=== PATIENT | female | born 1985 | race Caucasian/White ===

== ENCOUNTER 2019-02-08 15:12 | Inpatient (IN) ==
[2019-02-08] MEDS ORDERED: IOPAMIDOL 100 ML BOTTLE IV ONE (15:13)
--- NOTE | 2019-02-08 15:50 | Emergency Department Note ---
Abdominal Pain HPI - General Chief Complaint: Abdominal Pain Stated Complaint: Elevated liver enzymes Time Seen by Provider: 02/08/19 15:16 Source: patient, family Mode of arrival: ambulatory Limitations: no limitations - History of Present Illness HPI Narrative: 33-year-old female in ED referred from Dr. Porras office after lab results returned as patient's liver enzymes and bilirubin were elevated. Patient is 10 weeks' . She has been having night sweats and general fatigue. She was treated for urinary tract infection with Macrobid which is now cleared. Patient has no abdominal pain. She does have low back pain. Patient does not drink alcohol, does not smoke cigarettes, does not use marijuana. She does drink a lot of water and has not had a fever. Patient describes her low back pain is 2-3/10 fairly constant. She did have about a nausea that was prior to starting antibiotic treatment. Patient advises she does not take any [id number] herbal supplements. 4 days ago she did start taking 600 mg ibuprofen daily (last intake 1900) and 2000 mg Tylenol daily (last intake 0700). She also took Macrobid 5 days ago for a total of 4 days no antibiotic intake today. Patient has had no fevers no changes in bowel pattern. Associated symptoms: Reports: other (night sweats) - Related Data Home Medications Medication Instructions Recorded Confirmed #[id number] 1 tablet PO DAILY 04/23/15 02/08/19 Acetaminophen [Tylenol] 2 tab PO BID PRN 02/08/19 02/08/19 Ibuprofen [Ibu] 1 tab PO DAILY PRN 02/08/19 02/08/19 Allergies Allergy/AdvReac Type Severity Reaction Status Date / Time No Known Drug Allergies Allergy Verified 02/08/19 15:12 Review of Systems All systems ED: reviewed and negative except as stated. Abdominal Pain PMH - Past Medical History LMP comments: other (Has Nexplanon recently placed.) [facility] Narrative: All Active Problems (Last Reviewed 02/08/19 @ 09:13 by Jean-Pierre Porras DO) Annual visit for general adult medical examination without abnormal findings (Chronic) Pigmented skin lesion of uncertain nature (Chronic) Family history of breast cancer (Chronic) Seasonal allergies (Acute) Bronchitis (Acute) [place] teeth removed (Chronic) Family History (Last Reviewed 02/08/19 @ 09:13 by Jean-Pierre Porras DO) Father Malignant Neoplasm of Skin Diabetes mellitus Mother Malignant neoplasm of breast Grandmother-maternal Malignant neoplasm of breast Grandmother-paternal Malignant neoplasm of breast - Social History Smoking status: Never smoker Alcohol use: Reports: None Drug use: Reports: none Physical Exam Limitations: no limitations General appearance: alert, in no apparent distress Head: atraumatic, normocephalic, normal inspection Eye: Present: normal appearance, PERRL, EOMI. Absent: conjunctival injection ENT: normal oropharynx, mucous membranes moist, TM's normal bilaterally, normal external ear exam Neck: Present: normal inspection, full ROM, trachea midline. Absent: tenderness, lymphadenopathy Chest: Present: normal inspection, symmetric chest wall rise. Absent: tenderness Respiratory: Present: normal lung sounds bilaterally. Absent: respiratory distress, rales/crackles, wheezes Cardiovascular: Present: regular rate, normal rhythm. Absent: systolic murmur, diastolic murmur Abdominal: Present: soft, normal bowel sounds. Absent: distention, tenderness, guarding, rebound, rigidity Extremities: Present: normal inspection. Absent: tenderness, pedal edema Back: Present: normal inspection, full ROM, tenderness (L5-S1 area and across to hips), CVA tenderness (R). Absent: CVA tenderness (L) Neurological: Present: alert, oriented X3, normal gait Psychiatric: Present: normal affect, normal mood. Absent: depressed, agitated, anxious, flat affect Skin: Present: warm, dry, intact, normal color, other (pt does have what appears to be hot flashes from time to time.). Absent: cool, diaphoretic Course Vital Signs Temperature 98.0 F 02/08/19 15:13 Pulse Rate 89 02/08/19 15:13 Respiratory Rate 16 02/08/19 15:13 Blood Pressure 117/82 02/08/19 15:13 Pulse Oximetry (%) 98 02/08/19 15:13 Temperature 98.0 F 02/08/19 15:13 Pulse Rate 89 02/08/19 15:13 Respiratory Rate 16 02/08/19 15:13 Blood Pressure 117/82 02/08/19 15:13 Pulse Oximetry (%) 98 02/08/19 15:13 Abdominal Pain - MDM Narrative Medical decision making narrative: Lab work done earlier in the day with WBC 6.7 RBC 5.03, Hgb 11.9, HCT 35.8, platelet count 135, no shift to the left, ESR 40, lactic acid 1.2, sodium, potassium, BUN and creatinine all within normal limits, bilirubin 1.3 which is elevated from September when it was 1.1, AST 442 which is increased from 29, ALT 644 which is increased from 25, alkaline phosphatase 409 which is increased from 56 prolactin 52.4 urinary tract infection has cleared. Patient was negative for flu swab. Consulted with Dr. Awan who advised to get follow-up lab work and need for overnight observations to have reevaluation of liver enzymes. Also advised no additional Tylenol and to have rn documentation specialist GI phoned tomorrow with results and inquire on any additional ideas. Consulted with who advised this is highly unlikely related to as she is out of the window of any preeclampsia, and she would be having multiple other concerns, such as MODS. Also advised Prolactin in a breast feeding woman will be high. Therefore, it is okay for her to stay here verse a hospital with [facility] facilities. Dr. Olivera consulted on overnight observation and accepted patient. - Lab Data Lab Results 02/08/19 02/08/19 02/08/19 Range/Units 15:50 15:50 15:53 Urine Color Alana Urine Appearance Hazy Urine pH 6.0 (5.0-9.0) Ur Specific [place] 1.031 (1.000-1.035) Urine Protein 100 A (NEG) mg/dL Urine Glucose (UA) Negative (NEG) mg/dL Urine Ketones Neg (NEG) mg/dL Urine Occult Blood Neg (<0.03) mg/dL Urine Nitrate Neg (NEG) Urine Bilirubin Neg (NEG) mg/dL Urine Urobilinogen 4.0 A (NEG) mg/dL Ur Leukocyte Esterase 25 A (NEG) /uL Urine RBC 3 H (0-1) /hpf Urine WBC 4 (0-4) /hpf Ur Squamous Epith Cells 4 (0-4) /hpf Calcium Oxalate Crystal Many A (0) /hpf Urine Bacteria 0 (0) /hpf Urine Mucus Few (0) /hpf Ur Culture Indicated? No Acetaminophen 13.6 ug/mL Hepatitis A IgM Ab Non reactive (NEGATIVE) Hep Bs Antigen Negative (NEGATIVE) Hep B Core IgM Ab Non reactive (NEGATIVE) Hepatitis C Antibody Non reactive (NEGATIVE) Miscellaneous Test 02/08/19 02/08/19 Range/Units 21:13 21:14 Urine Color Urine Appearance Urine pH (5.0-9.0) Ur Specific [place] (1.000-1.035) Urine Protein (NEG) mg/dL Urine Glucose (UA) (NEG) mg/dL Urine Ketones (NEG) mg/dL Urine Occult Blood (<0.03) mg/dL Urine Nitrate (NEG) Urine Bilirubin (NEG) mg/dL Urine Urobilinogen (NEG) mg/dL Ur Leukocyte Esterase (NEG) /uL Urine RBC (0-1) /hpf Urine WBC (0-4) /hpf Ur Squamous Epith Cells (0-4) /hpf Calcium Oxalate Crystal (0) /hpf Urine Bacteria (0) /hpf Urine Mucus (0) /hpf Ur Culture Indicated? Acetaminophen ug/mL Hepatitis A IgM Ab (NEGATIVE) Hep Bs Antigen (NEGATIVE) Hep B Core IgM Ab (NEGATIVE) Hepatitis C Antibody (NEGATIVE) Miscellaneous Test - Radiology Data Radiology results reviewed: Yes I reviewed the patient's radiology results. Ultrasound gallbladder: CLINICAL INFORMATION: elavated enzymes and bilirubin COMPARISON: None. FINDINGS: The gallbladder is contracted but shows no evidence of wall thickening or focal tenderness. No stones. Common bile is normal at 4 mm. The pancreas and liver are normal in size configuration and echotexture without focal lesion. No free fluid IMPRESSION: Normal gallbladder, bile ducts, liver and pancreas CT abdominopelvic with contrast: FINDINGS: Lung bases show no abnormality - no effusion. The visualized heart is normal. Images of the abdomen show the liver is normal in size and figuration and demonstrates mild diffuse fatty change and periportal edema. Gallbladder is slightly contracted with minimal pericholecystic fluid. No stones. Intrahepatic and common bile ducts are normal caliber. The spleen is mildly enlarged spanning 15 x 4.4 x 13 cm. Both kidneys, adrenal glands, pancreas and aorta, including aortic branches, are normal in size, configuration and attenuation without focal lesion.No free air, free fluid or adenopathy. Images through the pelvis. Urinary bladder is unremarkable. Retroflexed uterus is normal in size - 8 x 4 cm. The region of the ovaries is normal. The stomach, small bowel, appendix and large bowel are normal. Bone window are significant for chronic bilateral L5-S1 spondylolisthesis with grade 1 spondylolisthesis resulting in severe left and moderate right IV foraminal narrowing impinging the exiting L5 nerve roots. IMPRESSION: 1. Mild periportal edema and diffuse fatty change in the liver. This CT finding, in conjunction with elevated LFTs, is suggestive of diffuse hepatic inflammation. Please correlate with any clinical history of exposure to hepatotoxins (alcohol, no poisons, medications, viruses etc.) 2. Mild splenomegaly. This may indicate multiple hematologic processes, infection or a collagen vascular disease. Correlation with inflammatory markers, CBC and reticulocyte count suggested 3. Chronic bilateral L5-S1 spondylolysis with grade 1 spondylolisthesis resulting in1 moderate right and severe left IV foraminal narrowing impinging the exiting L5 nerve roots Disposition Pt seen by PRIMARY OPERATOR/PA only: No (Chin) Clinical Impression: Abnormal liver function tests Disposition: Xfer As Outpt/Obs ([facility]) Condition: Good Referrals: Jean-Pierre Porras DO [Primary Care Provider] - Time of Disposition: 21:56
[2019-02-08] MEDS ORDERED: 0.9 % SODIUM CHLORIDE 1,000 ML IV ONE (16:18)
[2019-02-08 16:32] LABS: Appearance,Urine HAZY; Bacteria,Urine 0 /hpf (0); Bilirubin,Urine NEG (NEG); Calcium Oxalate Crystals,Urine MANY /hpf (0); Color,Urine AMBER; Glucose,Urine (UA) NEGATIVE (NEG); Leukocyte Esterase,Urine 25 /uL (NEG); Mucus,Urine FEW /hpf (0); Protein,Urine 100 mg/dL (NEG); Specific Gravity,Urine 1.031 (1.000-1.035); Urine Blood NEG mg/dL (<0.03); Urine RBC 3 /hpf (0-1); Urine Squamous Epithelial Cell 4 /hpf (0-4); Urine WBC 4 /hpf (0-4)
--- NOTE | 2019-02-08 17:33 | Ultrasound Report ---
CLINICAL INFORMATION: elavated enzymes and bilirubin COMPARISON: None. FINDINGS: The gallbladder is contracted but shows no evidence of wall thickening or focal tenderness. No stones. Common bile is normal at 4 mm. The pancreas and liver are normal in size configuration and echotexture without focal lesion. No free fluid IMPRESSION: Normal gallbladder, bile ducts, liver and pancreas Interpreted and Authenticated by: Jean-Pierre Rendon 02/08/19
[2019-02-08 19:02] LABS: Hepatitis A Antibody IgM NON REACTIVE (NEGATIVE); Hepatitis B Core IgM NON REACTIVE (NEGATIVE); Hepatitis B Surface Antigen NEGATIVE (NEGATIVE); Hepatitis C Virus Antibody NON REACTIVE (NEGATIVE)
--- NOTE | 2019-02-08 19:12 | Cat Scan Report ---
CLINICAL INFORMATION: Abdominal pain and elevated LFTs COMPARISON: None. TECHNIQUE: Following enteric contrast, 80 cc of Isovue-300 were injected intravenously, and 60 seconds later, 0.625 mm helical slices were obtained from the mid heart through the subtrochanteric regions. Following reconstruction, 2.5 mm sagittal, coronal and axial reformatted images were processed and reviewed at bone, lung and soft tissue windows. Five minutes later, 0.625 mm helical slices were obtained from the mid heart through the kidneys and viewed at soft tissue windows.The exam was performed using radiation dose optimization techniques including, but not limited to, automated exposure control, adjustment of the mA and/or kV according to patient size and use of iterative reconstruction technique. FINDINGS: Lung bases show no abnormality - no effusion. The visualized heart is normal. Images of the abdomen show the liver is normal in size and figuration and demonstrates mild diffuse fatty change and periportal edema. Gallbladder is slightly contracted with minimal pericholecystic fluid. No stones. Intrahepatic and common bile ducts are normal caliber. The spleen is mildly enlarged spanning 15 x 4.4 x 13 cm. Both kidneys, adrenal glands, pancreas and aorta, including aortic branches, are normal in size, configuration and attenuation without focal lesion.No free air, free fluid or adenopathy. Images through the pelvis. Urinary bladder is unremarkable. Retroflexed uterus is normal in size - 8 x 4 cm. The region of the ovaries is normal. The stomach, small bowel, appendix and large bowel are normal. Bone window are significant for chronic bilateral L5-S1 spondylolisthesis with grade 1 spondylolisthesis resulting in severe left and moderate right IV foraminal narrowing impinging the exiting L5 nerve roots. IMPRESSION: 1. Mild periportal edema and diffuse fatty change in the liver. This CT finding, in conjunction with elevated LFTs, is suggestive of diffuse hepatic inflammation. Please correlate with any clinical history of exposure to hepatotoxins (alcohol, no poisons, medications, viruses etc.) 2. Mild splenomegaly. This may indicate multiple hematologic processes, infection or a collagen vascular disease. Correlation with inflammatory markers, CBC and reticulocyte count suggested 3. Chronic bilateral L5-S1 spondylolysis with grade 1 spondylolisthesis resulting in1 moderate right and severe left IV foraminal narrowing impinging the exiting L5 nerve roots Interpreted and Authenticated by: Jean-Pierre Rendon 02/08/19
[2019-02-08 22:21] LABS: Amphetamine Screen,Urine NONE DETECTED (NONDETECTED); Benzodiazepines Screen,Urine NONE DETECTED (NONDETECTED); Cocaine Screen,Urine NONE DETECTED (NONDETECTED); Opiate Screen,Urine NONE DETECTED (NONDETECTED); Oxycodone, Urine Screen NONE DETECTED (NONDETECTED)
--- NOTE | 2019-02-08 22:42 | Internal Med History&Physical ---
Medical - H&P: [facility] Patient information: Note initiated : 02/08/19 at 10:32 pm Service Date, if different from initiated Date: [] Patient: Lesly Tionco a 33 y/o F admitted on for Elevated liver enzymes. Chief Complaint: [] History of present illness: Ms. Tinoco is a 33 year old F Presents to the ED from her primary care provider's office for elevated liver enzymes as well as B-like symptoms. Patient is 10 weeks for vaginal delivery. Postoperative she had some back pain which she believes from the epidural. She was on hydrocodone and Tylenol for a while. Pain eventually over 3 weeks. She is doing well until about 10 days ago when she started developing headaches arthralgias body aches chills night sweats fatigue. She is also developed bilateral lower back pain near the sides over the musculature. Prior to this the only medication she was on was occasional Tylenol maybe once a week and occasional ibuprofen even less frequent. She did have Etonogestrel implant for contraceptive use placed January 09, she has used this before. She denies any herbal medications. She does not drink alcohol or smoke. About 4 days ago she was treated for urinary tract infection with Macrobid, but again the symptoms started prior to this. She first saw her primary care provider who initiated work-up outpatient and found to have elevated liver enzymes and thus was sent in to the ED. AST was over 400 and ALT was over 600 with an elevated alk phos over 400. He did have a hepatitis panel and flu screen which were both negative. Gallbladder ultrasound was unremarkable. CT abdomen pelvis reported as diffuse fatty change in liver and mild periportal edema mild splenomegaly. Case was discussed with on-call WHITE MIXING OPERATOR who had no concerns from that perspective. Case was discussed with Dr. Decker recommended admission for follow-up labs in the morning and broad work-up including autoimmune and viral labs. Will check INR. Tylenol level was unremarkable. After discussion with gastroenterology there was consideration for starting empiric prednisone until some of the autoimmune labs returned such as HANSA. Review of Systems: Pertinent positives as above. Denies fever/nausea/vomiting/chest or abdominal pain/cough/dyspnea/diarrhea. Remaining 10 point review of system reviewed negat arie Medical - H&P: PM Medical history: Medical History (Last Reviewed 02/08/19 @ 09:13 by Jean-Pierre Porras DO) Seasonal allergies (Acute) Bronchitis (Acute) [place] teeth removed (Chronic) Heartburn (Resolved) Surgical history: Denies any Family History (Last Reviewed 02/08/19 @ 09:13 by Jean-Pierre Porras DO) Father Malignant Neoplasm of Skin Diabetes mellitus Mother Malignant neoplasm of breast Grandmother-maternal Malignant neoplasm of breast Grandmother-paternal Malignant neoplasm of breast Social History (Last Reviewed 02/08/19 @ 09:13 by Jean-Pierre Porras DO) Denies alcohol or smoking lives at home with Medical - H&P: Meds Home Medications Medication Instructions Recorded Confirmed Type #[id number] 1 tablet PO DAILY 04/23/15 02/08/19 History Acetaminophen [Tylenol] 2 tab PO BID PRN 02/08/19 02/08/19 History Ibuprofen [Ibu] 1 tab PO DAILY PRN 02/08/19 02/08/19 History Allergies Allergy/AdvReac Type Severity Reaction Status Date / Time No Known Drug Allergies Allergy Verified 02/08/19 15:12 Medical - H&P: Exam - Constitutional Vitals: Temp Pulse Resp BP Pulse Ox 98.0 F 89 16 117/82 98 02/08/19 15:13 02/08/19 15:13 02/08/19 15:13 02/08/19 15:13 02/08/19 15:13 Exam: General: Alert, Awake, No acute Distress Eyes/N/T: EOMI, PEERL, DMM Head/Neck: neck supple, normocephalic atraumatic CV: RRR, No murmurs, normal s1/s2 Pulm: Clear b/l, no wheezing/rhonchi/rales Abd: soft, nontender, +BS x4, minimal tenderness to palpation over bilateral paralumbar musculature Ext: no clubbing/cyanosis/edema Neuro: Alert, no focal deficits, moves all extremities, CN 2-12 grossly intact, symmetrical strength b/l upper/lower, sensations intact b/l upper/lower Skin: warm/dry Medical - H&P: Reslt - Labs Labs: Urine 02/08/19 Range/Units 15:53 Urine Color Alana Urine Appearance Hazy Urine pH 6.0 (5.0-9.0) Ur Specific [place] 1.031 (1.000-1.035) Urine Protein 100 A (NEG) mg/dL Urine Glucose (UA) Negative (NEG) mg/dL - Impressions CT abdomen pelvis with fatty changes in the liver, mild splenomegaly no other acute findings Medical - H&P: A/P - Narrative A/P Narrative: A: *Acute hepatitis: ?Etiology - medications vs viral vs autoimmune -hepatitis panel and APAP unremarkable. *B-like symptoms of myalgias/arthralgias/night sweats/fatigue: * 10 weeks: Vaginal delivery. Follows with Dr. Bui *Contraceptive use: Etonogestrel implant placed january 09, has been on this in past * P: -pending autoimmune/viral labs -check INR/Ammonia -GI consult -f/u LFT's in AM - -ppx: SCD/Ambulation
[2019-02-08 22:50] LABS: Immunoglobulin A 329.5 mg/dl (70.0-400.0)
[2019-02-08] MEDS ORDERED: PROMETHAZINE 25 MG TABLET PO PRN (23:04)
[2019-02-08] MEDS ORDERED: 0.9 % SODIUM CHLORIDE 1,000 ML IV SCH (23:04)
[2019-02-08] MEDS ORDERED: POLYETHYLENE GLYCOL 3350 17 GM PACKET PO PRN (23:04)
[2019-02-08] MEDS ORDERED: predniSONE 20 MG TABLET PO ONE (23:04)
[2019-02-08] MEDS ORDERED: ONDANSETRON 4 MG/2 ML VIAL IV PRN (23:04)
[2019-02-08] MEDS ORDERED: traMADol 50 MG TABLET PO PRN (23:04)
[2019-02-08] MEDS ORDERED: predniSONE 20 MG TABLET ONE (23:42)
[2019-02-08] MEDS ORDERED: traMADol 50 MG TABLET PO ONE (23:43)
[2019-02-09] MEDS ORDERED: oxyCODONE HCL 5 MG TABLET PO ONE ×2 (01:27→01:34)
[2019-02-09] MEDS ORDERED: diphenhydrAMINE 25 MG CAPSULE PO ONE (01:28)
[2019-02-09] MEDS ORDERED: diphenhydrAMINE 25 MG CAPSULE ONE (01:33)
[2019-02-09] MEDS ORDERED: predniSONE 20 MG TABLET ONE (01:37)
[2019-02-09] MEDS ORDERED: ONDANSETRON 4 MG/2 ML VIAL ONE (01:43)
[2019-02-09] MEDS: 0.9 % SODIUM CHLORIDE 10 ML SYRINGE IV SCH ×2 (01:44→05:10)
[2019-02-09 06:40] LABS: Basophils # (Auto) 0 K/mcL (0.0-0.3); Basophils % (Auto) 0.6 % (0.0-2.0); Eosinophils # (Auto) 0.1 K/mcL (0.0-0.7); Eosinophils % (Auto) 0.9 % (0.0-7.0); Granulocytes % (Auto) 32.3 % (38.0-78.0); Lymphocytes % (Auto) 58.3 % (15.5-49.0); Mean Cell Volume 88.2 fL (80.0-100.0); Mean Corpuscular HGB Conc 34.2 g/dL (31.0-36.0); Monocytes # (Auto) 0.5 K/mcL (0.1-0.9); Monocytes % (Auto) 7.9 % (1.0-12.0); Platelet Count 158 K/mcL (140-440); RBC 3.63 M/mcL (4.00-5.20)
--- NOTE | 2019-02-09 07:07 | Internal Med Progress Note ---
Medical - PN: Subj Patient information: Note initiated : 02/09/19 at 7:04 am Service Date, if different from initiated Date: [] Patient: Lesly Tinoco a 33 y/o F admitted on 02/08/19 for Elevated liver enzymes. Chief Complaint: [] Interval history: Ms. Tinoco is a 33 year old F Presents to the ED from her primary care provider's office for elevated liver enzymes as well as B-like symptoms. Patient is 10 weeks for vaginal delivery. Postoperative she had some back pain which she believes from the epidural. She was on hydrocodone and Tylenol for a while. Pain eventually over 3 weeks. She is doing well until about 10 days ago when she started developing headaches arthralgias body aches chills night sweats fatigue. She is also developed bilateral lower back pain near the sides over the musculature. Prior to this the only medication she was on was occasional Tylenol maybe once a week and occasional ibuprofen even less frequent. She did have Etonogestrel implant for contraceptive use placed January 09, she has used this before. She denies any herbal medications. She does not drink alcohol or smoke. About 4 days ago she was treated for urinary tract infection with Macrobid, but again the symptoms started prior to this. She first saw her primary care provider who initiated work-up outpatient and found to have elevated liver enzymes and thus was sent in to the ED. AST was over 400 and ALT was over 600 with an elevated alk phos over 400. He did have a hepatitis panel and flu screen which were both negative. Gallbladder ultrasound was unremarkable. CT abdomen pelvis reported as diffuse fatty change in liver and mild periportal edema mild splenomegaly. Case was discussed with on-call CALENDER MACHINE OPERATOR who had no concerns from that perspective. Case was discussed with Dr. Decker recommended admission for follow-up labs in the morning and broad work-up including autoimmune and viral labs. Will check INR. Tylenol level was unremarkable. After discussion with gastroentero logy there was consideration for starting empiric prednisone until some of the autoimmune labs returned such as HANSA. 02/09 Patient had severe headaches last night. She has a history of headaches growing up. Did not have any headaches during and then started having headaches again afterwards. She has been she given 1 dose of oxycodone and Benadryl and prednisone which was previously ordered that she had initially refused. She was able to sleep and felt really good in the morning when she woke up and then started having some sweating again. Liver enzymes are improved today. - Constitutional Vitals: Vital Signs Temp Pulse Resp BP Pulse Ox 97.8 F 78 20 107/65 93 02/09/19 07:02 02/09/19 04:00 02/09/19 07:02 02/09/19 07:02 02/09/19 07:02 Period Temp Pulse Resp BP Sys/Torres Pulse Ox Last 24 Hr 97.8 F-99 F 78-89 10-20 107-117/63-82 93-98 Intake and Output 02/08/19 02/09/19 02/09/19 21:59 05:59 13:59 Intake Total 1000 600 Output Total 100 800 Balance 1000 500 -800 Weight 72.575 kg 74.843 kg Intake & Output: Intake & Output 02/08/19 02/09/19 02/09/19 21:59 05:59 13:59 Intake Total 1000 600 Output Total 100 800 Balance 1000 500 -800 Weight 72.575 kg 74.843 kg Intake: IV 1000 Sodium Chloride 0.9% 1,000 ml @ 1000 Wide Open IV BOLUS ONE Rx#: [id number] Oral 600 Output: Void Amount 100 800 Other: Urine Appearance Clear Urine Color Dark Yellow Dark Yellow Urine Odor Normal Normal # Voids 1 Exam: General: Alert, Awake, No acute Distress Eyes/N/T: EOMI, Head/Neck: neck supple, CV: RRR, No murmurs, Pulm: Clear b/l, no wheezing/rhonchi/rales Abd: soft, nontender, +BS x4, Ext: no clubbing/cyanosis/edema Neuro: Alert, no focal deficits, moves all extremities, Skin: warm/dry Medical - PN: Obj Da - Labs CBC & Chem 7: 02/09/19 04:35 02/09/19 04:35 Labs: Abnormal Lab Results 02/09/19 02/08/19 02/08/19 04:35 21:14 21:14 RBC 3.63 L Hgb 10.9 L Hct 32.0 L Gran % 32.3 L Lymph % (Auto) 58.3 H Total Creatine Kinase 344 H Urine Protein Urine Urobilinogen Ur Leukocyte Esterase Urine RBC Calcium Oxalate Crystal IgM 440.0 H 02/08/19 15:53 RBC Hgb Hct Gran % Lymph % (Auto) Total Creatine Kinase Urine Protein 100 A Urine Urobilinogen 4.0 A Ur Leukocyte Esterase 25 A Urine RBC 3 H Calcium Oxalate Crystal Many A IgM Meds: Medications Sodium Chloride (Sodium Chloride 0.9%) 1,000 mls @ 75 mls/hr IV .[id number] [facility] Stop: 02/09/19 12:23 Last Admin: 02/09/19 00:30 Dose: 75 mls/hr Documented by: Ondansetron HCl (Zofran) 4 mg IV Q6HP PRN PRN Reason: Nausea And Vomiting Last Admin: 02/09/19 01:41 Dose: 4 mg Documented by: Polyethylene Glycol (Miralax) 17 gm PO DAILYP PRN PRN Reason: Constipation Promethazine HCl (Phenergan) 12.5 mg PO Q6HP PRN PRN Reason: Nausea And Vomiting Sodium Chloride (Saline Flush) 10 ml IV Q8 [facility] Last Admin: 02/09/19 05:10 Dose: Not Given Documented by: Tramadol HCl (Ultram) 50 mg PO Q12HP PRN PRN Reason: Pain Medical - PN: A/P - Time Spent With Patient Total time spent is greater than 50% in coordination of care (as documented) at patient's floor/unit and/or counseling patient: - Narrative A/P Narrative: A: *Acute hepatitis: ?Etiology - medications vs viral vs autoimmune -hepatitis panel and APAP unremarkable. -INR/ammonia wnl -Improving *B-like symptoms of myalgias/arthralgias/night sweats/fatigue: *headaches with h/o same: * 10 weeks: Vaginal delivery. Follows with Dr. Bui *Contraceptive use: Etonogestrel implant placed january 09, has been on this in past *Anemia: + acute dilutional component P: -pending autoimmune/viral labs -GI consulted -f/u with GI -monitor liver enzymes - -ppx: SCD/Ambulation Medical - PN: Qual - Stroke Symptom Onset Unknown: No - VTE Deep Vein Thrombosis/Pulmonary Embolism Present on Admission: No
[2019-02-09 07:35] LABS: ALT/SGPT 488 U/l (0-40); Albumin 3.5 gm/dL (3.2-5.2); Alkaline Phosphatase 406 U/L (39-117); Bilirubin,Direct 0.4 mg/dL (0.0-0.3); Blood Urea Nitrogen 13 mg/dl (6-20); Gamma Glutamyl Transpeptidase 181 U/L (5-36); Uric Acid 3.9 mg/dL (2.5-8.0)
--- NOTE | 2019-02-09 11:31 | Discharge Summary ---
Medical - DS: Prov Patient information: Note initiated : 02/09/19 at 11:29 am Service Date, if different from initiated Date: [] Patient: Lesly Tinoco a 33 y/o F admitted on 02/08/19 for Elevated liver enzymes. Chief Complaint: [] Date of admission: 02/08/19 23:00 Discharge date: 02/09/19 Primary care physician: Jean-Pierre Porras Consults: 02/08/19 Consult to Physician [CONS] Stat Comment: Consulting Provider: Mikey Olivera Reason For Exam: Physician to Consult 02/08/19 23:04 Consult to Physician [CONS] Routine Comment: Consulting Provider: JeanP-ierre Awan Reason For Exam: Physician to Consult Medical - DS: Meds - Discharge Medications Prescriptions: Acetaminophen [Tylenol] 1 tab PO BID PRN #1 tablet PRN Reason: Pain Ondansetron [Zofran ODT] 4 mg SL Q4-6HP PRN #40 tab PRN Reason: Nausea oxyCODONE HCL [Oxycodone HCl] 5 mg PO BIDP PRN #9 cap PRN Reason: Pain Active and Home Medications: Home Medications #[id number] acid 1 tablet PO DAILY 04/23/15 [History Confirmed 02/08/19 Last Taken 02/08/19 07:00] Acetaminophen [Tylenol] 2 tab PO BID PRN 02/08/19 [History Confirmed 02/08/19 Last Taken 02/08/19 07:00] Ibuprofen [Ibu] 1 tab PO DAILY PRN 02/08/19 [History Confirmed 02/08/19 Last Taken 02/08/19 19:00] Home Medications #[id number] acid 1 tablet PO DAILY 04/23/15 [History Confirmed 02/08/19 Last Taken 02/08/19 07:00] Acetaminophen [Tylenol] 1 tab PO BID PRN #1 tablet 02/09/19 [Rx Last Taken Unknown] Ondansetron [Zofran ODT] 4 mg SL Q4-6HP PRN #40 tab 02/09/19 [Rx Last Taken Unknown] oxyCODONE HCL [Oxycodone HCl] 5 mg PO BIDP PRN #9 cap 02/09/19 [Rx Last Taken Unknown] Medical - DS: Hosp Hospital course: Ms. Tinoco is a 33 year old F Presents to the ED from her primary care provider's office for elevated liver enzymes as well as B-like symptoms. Patient is 10 weeks for vaginal delivery. Postoperative she had some back pain which she believes from the epidural. She was on hydrocodone and Tylenol for a while. Pain eventually over 3 weeks. She is doing well until about 10 days ago when she started developing headaches arthralgias body aches chills night sweats fatigue. She is also developed bilateral lower back pain near the sides over the musculature. Prior to this the only medication she was on was occasional Tylenol maybe once a week and occasional ibuprofen even less frequent. She did have Etonogestrel implant for contraceptive use placed January 09, she has used this before. She denies any herbal medications. She does not drink alcohol or smoke. About 4 days ago she was treated for urinary tract infection with Macrobid, but again the symptoms started prior to this. She first saw her primary care provider who initiated work-up outpatient and found to have elevated liver enzymes and thus was sent in to the ED. AST was over 400 and ALT was over 600 with an elevated alk phos over 400. He did have a hepatitis panel and flu screen which were both negative. Gallbladder ultrasound was unremarkable. CT abdomen pelvis reported as diffuse fatty change in liver and mild periportal edema mild splenomegaly. Case was discussed with on-call [employer] who had no concerns from that perspective. Case was discussed with Dr. Decker recommended admission for follow-up labs in the morning and broad work-up including autoimmune and viral labs. Will check INR. Tylenol level was unremarkable. After discussion with gastroenterology there was consideration for starting empiric prednisone until some of the autoimmune labs returned such as HANSA. 02/09 Patient had severe headaches last night. She has a history of headaches growing up. Did not have any headaches during and then started having headaches again afterwards. She has been she given 1 dose of oxycodone and Benadryl and prednisone which was previously ordered that she had initially refused. She was able to sleep and felt really good in the morning when she woke up and then started having some sweating again. Liver enzymes are improved today. Discussed the case further with Dr. Parish. Patient will follow up with Dr. Gonzalez next week and awaiting return of lab work. Stable for discharge Discharge diagnosis: Hepatitis Secondary discharge diagnosis: Anemia, history of headaches - Time Spent with Patient Total time spent providing and/or coordinating discharge services: Greater than 30 minutes Medical - DS: Exam - Constitutional Vitals: Vital Signs Temp Pulse Pulse Resp BP BP Pulse Ox 02/09/19 07:02 97.8 F 20 107/65 93 02/09/19 04:00 97.9 F 78 16 109/65 96 02/08/19 23:00 99 F 88 10 L 107/63 96 02/08/19 15:13 98.0 F 89 16 117/82 98 Intake and Output 02/08/19 02/09/19 02/09/19 21:59 05:59 13:59 Intake Total 3812 368 8484 Output Total 100 1900 Balance 1000 500 -860 Intake: IV 1000 Sodium Chloride 0.9% 1,000 ml @ 1000 Wide Open IV BOLUS ONE Rx#: [id number] Oral 600 1040 Output: Void Amount 100 1900 Other: Meal Breakfast Percent of Meal Consumed 100% Urine Appearance Clear Clear Urine Color Dark Yellow Light [place] Urine Odor Normal Normal # Voids 1 Weight 72.575 kg 74.843 kg Medical - DS: Data Labs on day of discharge: Labs from last 24 hours 02/09/19 02/09/19 02/09/19 04:35 04:35 04:35 WBC RBC Hgb Hct MCV MCH MCHC RDW Plt Count MPV Gran % Lymph % (Auto) Bibb % (Auto) Eos % (Auto) Baso % (Auto) Gran # Lymph # (Auto) Bibb # (Auto) Eos # (Auto) Baso # (Auto) PT 12.7 INR 1.0 Sodium 141 Potassium 4.4 Chloride 107 Carbon Dioxide 22 Anion Gap 12.0 BUN 13 Creatinine 0.8 GFR Calculation 98 Glucose 120 H Uric Acid 3.9 Calcium 8.5 L Phosphorus 3.0 Magnesium 2.2 Total Bilirubin 1.1 H Direct Bilirubin 0.4 H GGT 181 H AST 246 H ALT 488 H Alkaline Phosphatase 406 H Ammonia 35 Lactate Dehydrogenase 725 H Total Creatine Kinase Total Protein 7.1 Albumin 3.5 Globulin 3.6 Albumin/Globulin Ratio 1.0 Ceruloplasmin Triglycerides 160 H Urine Color Urine Appearance Urine pH Ur Specific [place] Urine Protein Urine Glucose (UA) Urine Ketones Urine Occult Blood Urine Nitrate Urine Bilirubin Urine Urobilinogen Ur Leukocyte Esterase Urine RBC Urine WBC Ur Squamous Epith Cells Calcium Oxalate Crystal Urine Bacteria Urine Mucus Ur Culture Indicated? Urine Opiates Screen Ur Opiates Confirm Ur Oxycodone Screen Urine Methadone Screen Ur Methadone Confirm Acetaminophen Ur Barbiturates Screen Ur Barbiturate Confirm Ur Phencyclidine Scrn Urine PCP Confirm Ur Amphetamines Screen U Amphetamines Confirm U Benzodiazepines Scrn U Benzodiazepine Confm Urine Cocaine Screen Urine Cocaine Confirm U Cannabinoids Confirm U Marijuana (THC) Screen IgG IgA IgM Rheumatoid Factor HANSA Screen HANSA Titer HANSA Titer and Pattern SS-A Antibody SS-B Antibody Sm (Peres) Antibody SM/DIRECTOR OF MATH Antibody Scl-70 Antibody Anti-ds DNA IgG Ab Titer Anti-ds DNA (Crithidia) Hepatitis A IgM Ab Hep Bs Antigen Hep B Core IgM Ab Hepatitis C Antibody Miscellaneous Test 02/09/19 02/08/19 02/08/19 04:35 22:00 21:14 WBC 6.9 RBC 3.63 L Hgb 10.9 L Hct 32.0 L MCV 88.2 MCH 30.2 MCHC 34.2 RDW 14.0 Plt Count 158 MPV 8.6 Gran % 32.3 L Lymph % (Auto) 58.3 H Bibb % (Auto) 7.9 Eos % (Auto) 0.9 Baso % (Auto) 0.6 Gran # 2.2 Lymph # (Auto) 4.0 Bibb # (Auto) 0.5 Eos # (Auto) 0.1 Baso # (Auto) 0 PT 13.0 INR 1.0 Sodium Potassium Chloride Carbon Dioxide Anion Gap BUN Creatinine GFR Calculation Glucose Uric Acid Calcium Phosphorus Magnesium Total Bilirubin Direct Bilirubin GGT AST ALT Alkaline Phosphatase Ammonia Lactate Dehydrogenase Total Creatine Kinase 344 H Total Protein Albumin Globulin Albumin/Globulin Ratio Ceruloplasmin Triglycerides Urine Color Urine Appearance Urine pH Ur Specific [place] Urine Protein Urine Glucose (UA) Urine Ketones Urine Occult Blood Urine Nitrate Urine Bilirubin Urine Urobilinogen Ur Leukocyte Esterase Urine RBC Urine WBC Ur Squamous Epith Cells Calcium Oxalate Crystal Urine Bacteria Urine Mucus Ur Culture Indicated? Urine Opiates Screen Ur Opiates Confirm Ur Oxycodone Screen Urine Methadone Screen Ur Methadone Confirm Acetaminophen Ur Barbiturates Screen Ur Barbiturate Confirm Ur Phencyclidine Scrn Urine PCP Confirm Ur Amphetamines Screen U Amphetamines Confirm U Benzodiazepines Scrn U Benzodiazepine Confm Urine Cocaine Screen Urine Cocaine Confirm U Cannabinoids Confirm U Marijuana (THC) Screen IgG IgA IgM Rheumatoid Factor HANSA Screen HANSA Titer HANSA Titer and Pattern SS-A Antibody SS-B Antibody Sm (Peres) Antibody SM/DIRECTOR OF MATH Antibody Scl-70 Antibody Anti-ds DNA IgG Ab Titer Anti-ds DNA (Crithidia) Hepatitis A IgM Ab Hep Bs Antigen Hep B Core IgM Ab Hepatitis C Antibody Miscellaneous Test 02/08/19 02/08/19 02/08/19 21:14 21:14 21:13 WBC RBC Hgb Hct MCV MCH MCHC RDW Plt Count MPV Gran % Lymph % (Auto) Bibb % (Auto) Eos % (Auto) Baso % (Auto) Gran # Lymph # (Auto) Bibb # (Auto) Eos # (Auto) Baso # (Auto) PT INR Sodium Potassium Chloride Carbon Dioxide Anion Gap BUN Creatinine GFR Calculation Glucose Uric Acid Calcium Phosphorus Magnesium Total Bilirubin Direct Bilirubin GGT AST ALT Alkaline Phosphatase Ammonia Lactate Dehydrogenase Total Creatine Kinase Total Protein Albumin Globulin Albumin/Globulin Ratio Ceruloplasmin Pending Triglycerides Urine Color Urine Appearance Urine pH Ur Specific [place] Urine Protein Urine Glucose (UA) Urine Ketones Urine Occult Blood Urine Nitrate Urine Bilirubin Urine Urobilinogen Ur Leukocyte Esterase Urine RBC Urine WBC Ur Squamous Epith Cells Calcium Oxalate Crystal Urine Bacteria Urine Mucus Ur Culture Indicated? Urine Opiates Screen Ur Opiates Confirm Ur Oxycodone Screen Urine Methadone Screen Ur Methadone Confirm Acetaminophen Ur Barbiturates Screen Ur Barbiturate Confirm Ur Phencyclidine Scrn Urine PCP Confirm Ur Amphetamines Screen U Amphetamines Confirm U Benzodiazepines Scrn U Benzodiazepine Confm Urine Cocaine Screen Urine Cocaine Confirm U Cannabinoids Confirm U Marijuana (THC) Screen IgG 1271 IgA 329.5 IgM 440.0 H Rheumatoid Factor HANSA Screen HANSA Titer HANSA Titer and Pattern SS-A Antibody SS-B Antibody Sm (Peres) Antibody SM/DIRECTOR OF MATH Antibody Scl-70 Antibody Anti-ds DNA IgG Ab Titer Anti-ds DNA (Crithidia) Hepatitis A IgM Ab Hep Bs Antigen Hep B Core IgM Ab Hepatitis C Antibody Miscellaneous Test 02/08/19 02/08/19 02/08/19 21:13 21:13 15:53 WBC RBC Hgb Hct MCV MCH MCHC RDW Plt Count MPV Gran % Lymph % (Auto) Bibb % (Auto) Eos % (Auto) Baso % (Auto) Gran # Lymph # (Auto) Bibb # (Auto) Eos # (Auto) Baso # (Auto) PT INR Sodium Potassium Chloride Carbon Dioxide Anion Gap BUN Creatinine GFR Calculation Glucose Uric Acid Calcium Phosphorus Magnesium Total Bilirubin Direct Bilirubin GGT AST ALT Alkaline Phosphatase Ammonia Lactate Dehydrogenase Total Creatine Kinase Total Protein Albumin Globulin Albumin/Globulin Ratio Ceruloplasmin Triglycerides Urine Color Alana Urine Appearance Hazy Urine pH 6.0 Ur Specific [place] 1.031 Urine Protein 100 A Urine Glucose (UA) Negative Urine Ketones Neg Urine Occult Blood Neg Urine Nitrate Neg Urine Bilirubin Neg Urine Urobilinogen 4.0 A Ur Leukocyte Esterase 25 A Urine RBC 3 H Urine WBC 4 Ur Squamous Epith Cells 4 Calcium Oxalate Crystal Many A Urine Bacteria 0 Urine Mucus Few Ur Culture Indicated? No Urine Opiates Screen Ur Opiates Confirm Ur Oxycodone Screen Urine Methadone Screen Ur Methadone Confirm Acetaminophen Ur Barbiturates Screen Ur Barbiturate Confirm Ur Phencyclidine Scrn Urine PCP Confirm Ur Amphetamines Screen U Amphetamines Confirm U Benzodiazepines Scrn U Benzodiazepine Confm Urine Cocaine Screen Urine Cocaine Confirm U Cannabinoids Confirm U Marijuana (THC) Screen IgG IgA IgM Rheumatoid Factor Pending HANSA Screen Pending HANSA Titer Pending HANSA Titer and Pattern Pending SS-A Antibody Pending SS-B Antibody Pending Sm (Peres) Antibody Pending SM/DIRECTOR OF MATH Antibody Pending Scl-70 Antibody Pending Anti-ds DNA IgG Ab Titer Pending Anti-ds DNA (Crithidia) Pending Hepatitis A IgM Ab Hep Bs Antigen Hep B Core IgM Ab Hepatitis C Antibody Miscellaneous Test 02/08/19 02/08/19 02/08/19 15:50 15:50 15:31 WBC RBC Hgb Hct MCV MCH MCHC RDW Plt Count MPV Gran % Lymph % (Auto) Bibb % (Auto) Eos % (Auto) Baso % (Auto) Gran # Lymph # (Auto) Bibb # (Auto) Eos # (Auto) Baso # (Auto) PT INR Sodium Potassium Chloride Carbon Dioxide Anion Gap BUN Creatinine GFR Calculation Glucose Uric Acid Calcium Phosphorus Magnesium Total Bilirubin Direct Bilirubin GGT AST ALT Alkaline Phosphatase Ammonia Lactate Dehydrogenase Total Creatine Kinase Total Protein Albumin Globulin Albumin/Globulin Ratio Ceruloplasmin Triglycerides Urine Color Urine Appearance Urine pH Ur Specific [place] Urine Protein Urine Glucose (UA) Urine Ketones Urine Occult Blood Urine Nitrate Urine Bilirubin Urine Urobilinogen Ur Leukocyte Esterase Urine RBC Urine WBC Ur Squamous Epith Cells Calcium Oxalate Crystal Urine Bacteria Urine Mucus Ur Culture Indicated? Urine Opiates Screen None detected Ur Opiates Confirm Not Reportable Ur Oxycodone Screen None detected Urine Methadone Screen None detected Ur Methadone Confirm Not Reportable Acetaminophen 13.6 Ur Barbiturates Screen None detected Ur Barbiturate Confirm Not Reportable Ur Phencyclidine Scrn None detected Urine PCP Confirm Not Reportable Ur Amphetamines Screen None detected U Amphetamines Confirm Not Reportable U Benzodiazepines Scrn None detected U Benzodiazepine Confm Not Reportable Urine Cocaine Screen None detected Urine Cocaine Confirm Not Reportable U Cannabinoids Confirm Not Reportable U Marijuana (THC) Screen None detected IgG IgA IgM Rheumatoid Factor HANSA Screen HANSA Titer HANSA Titer and Pattern SS-A Antibody SS-B Antibody Sm (Peres) Antibody SM/DIRECTOR OF MATH Antibody Scl-70 Antibody Anti-ds DNA IgG Ab Titer Anti-ds DNA (Crithidia) Hepatitis A IgM Ab Non reactive Hep Bs Antigen Negative Hep B Core IgM Ab Non reactive Hepatitis C Antibody Non reactive Miscellaneous Test Medical - DS: A/P - Patient/Caregiver Discharge Instructions Activity: increase activity as tolerated Diet: Regular Diet Additional Instructions: Follow-up with Dr. Bui regarding contraceptive implant to rule out medication as a possible contributor Prescriptions: Ondansetron [Zofran ODT] 4 mg SL Q4-6HP PRN #40 tab PRN Reason: Nausea - Follow up Plan Follow up with: Jean-Pierre Porras DO [Primary Care Provider] - Cordell Parish [Physician] - Disposition: Home, Self-Care Prognosis: Good Rehab Potential: Good Overall status at discharge: patient is progressing back to baseline Medical - DS: Qual - VTE Deep Vein Thrombosis/Pulmonary Embolism Present on Admission: No
[2019-02-14 10:47] LABS: DNA AB(DS) Crithidia, IFA NEGATIVE (NEGATIVE); Rhuematoid Factor 46 IU/mL (<14); SM Antibody <1.0 NEG AI (SEE COMMENT); Scl-70 <1.0 NEG AI (SEE COMMENT)
== END 2019-02-09 13:32 | disposition home or self-care (01) | DRG 443 ==
LOC: ED 15:12 → MEDSUR 23:00
PROVIDERS: ADMIT Internal Medicine; ATTEND Internal Medicine